=== PATIENT | female | born 1965 | race Caucasian/White ===

== ENCOUNTER 2020-03-13 09:03 | Emergency (ER) | payer OTHER ==
[~2020-03-13] VITALS: Ht 167.6 cm; Wt 59.0 kg
--- NOTE | 2020-03-13 09:05 | NUR ---
came in for left shoulder, left arm, wrist, and face pain s/p tripped and fall left ear and face laceration, -ko, to ER bed 4, hooked to monitor, changed to hosp gown, warm blanket provided, awaiting MD fowler
--- NOTE | 2020-03-13 10:21 | NUR ---
wheeled out via [place] for ct scan
[2020-03-13] MEDS ORDERED: HYDROCODONE/APAP 5/325MG 1 EACH TABLET PO ONE (10:30)
[2020-03-13] MEDS ORDERED: TDAP [DIPH/PERTUSSIS/TET] 0.5 ML VIAL IM ONE ×2 (10:30→11:03)
[2020-03-13] MEDS ORDERED: IBUPROFEN 400 MG TABLET PO ONE (10:30)
[2020-03-13] MEDS ORDERED: HYDROCODONE/APAP 5/325MG 1 EACH TABLET ONE (11:02)
[2020-03-13] MEDS ORDERED: IBUPROFEN 400 MG TABLET ONE (11:02)
--- NOTE | 2020-03-13 11:45 | NUR ---
Patient discharged to home in stable condition. Written and verbal after care instructions given. Patient verbalizes understanding of instruction. Instructed not to drive. Assisted to waiting room to meet .
[2020-03-13 11:46] VITALS: BP 121/74
== END 2020-03-13 11:47 | disposition home or self-care (01) ==
LOC: ER 09:05
DX: S01.312A Laceration without foreign body of left ear, initial encounter (principal); M25.532 Pain in left wrist; R51 Headache; W01.0XXA Fall on same level from slipping, tripping and stumbling without subsequent striking against object, initial encounter; Y93.K1 Activity, walking an animal; Y92.89 Other specified places as the place of occurrence of the external cause; Y99.8 Other external cause status
CPT/HCPCS: 12011; 70450; 70486; 72125; 73110; 73130; 90471; 90715; 99285; A6403 ×2